=== PATIENT | female | born 1940 | race Two or more races ===

== ENCOUNTER 2016-02-18 04:10 | Inpatient (IN) | payer OTHER ==
[~2016-02-18] VITALS: Ht 144.8 cm; Wt 56.3 kg
[~2016-02-18 04:10] MED LIST: AMBIEN5 MG PO; AUGMENTIN875 MG PO; HYZAAR 100-11 TABLET PO; JANUVIA25 MG PO; LASIX20 MG PO; LIPITOR80 MG PO; LOW DOSE ASPIRI81 M1 PO; NORVASC10 MG PO; PROAIR HFA8.5 GM IH; SPIRIVA RESPIMAT4 GM IH; TOPROL XL100 MG PO; ULTRAM50 MG PO; VENTOLIN HFA18 GM IH; ZITHROMAX Z-PA250 MG PO; ZOLPIDEM TARTRAT5 MG PO
[2016-02-18 05:43] LABS: CARBON DIOXIDE (BICARBONATE) 21.8 MEQ/L (20-31)
[2016-02-18 05:53] LABS: CHLORIDE 112 mEq/L (99-109); POTASSIUM 4.4 mEq/L (3.7-5.4); SODIUM 141 mEq/L (136-147)
[2016-02-18 05:55] LABS: GLUCOSE 109 mg/dL (70-99)
[2016-02-18 05:56] LABS: ANION GAP 11 MEQ/L (2-14)
[2016-02-18 05:59] LABS: GFR ESTIMATE (CALCULATED) 23 mL/min/
[2016-02-18 06:00] LABS: UREA NITROGEN (BUN) 42 mg/dL (9-23)
[2016-02-18 06:03] LABS: TROP-I INTERPRETATION NEGATIVE; TROPONIN-I 0.09 ng/mL (0.0-0.30)
[2016-02-18 06:20] LABS: HEMATOCRIT 34.7 % (36.0-46.0); MCH 30.7 PG (29.0-34.0); MCHC 34.3 G/DL (30.0-36.0); MCV 89.4 FL (83-99); MEAN PLAT.VOLUME 9.3 uM^3 (9.5-12.4); PLATELET COUNT 312 K/uL (156-360); RBC DIS.WIDTH-CV 13.7 % (11.8-14.6); RBC DIS.WIDTH-SD 43.8 % (39-53); RED BLOOD COUNT 3.88 M/uL (3.80-5.20); WHITE BLOOD COUNT 11.8 K/uL (4.1-10.2)
[2016-02-18 08:56] LABS: INTER. NORMALIZED RATIO 1.1; PROTHROMBIN TIME 10.8 (9.2-11.2); PTT 28.3 (25-32)
[2016-02-18 15:25] LABS: ADD MIUA? YES; BILIRUBIN NEGATIVE; BLOOD TRACE; COLOR YELLOW ((YELLOW)); GLUCOSE (STRIP) NEGATIVE; KETONES NEGATIVE; LEUKOCYTES NEGATIVE; NITRITE NEGATIVE; PROTEIN (STRIP) 30; UROBILINOGEN 0.2 MG/DL (0.2-1.0)
[2016-02-18 15:40] LABS: BACTERIA NONE SEEN; CASTS NONE SEEN /LPF; CRYSTALS NONE SEEN; EPITHELIAL CELLS RARE; MUCUS NONE SEEN; PATHOLOGICAL CAST NONE SEEN; RED BLOOD CELLS 0-5 /HPF (0-5); SMALL ROUND CELL NONE SEEN; WHITE BLOOD CELLS 0-5 /HPF (0-5); YEAST-LIKE CELL NONE SEEN
[2016-02-18 15:55] VITALS: BP 165/61
[2016-02-18 16:05] VITALS: BP 124/78
[2016-02-18 16:25] LABS: TYPE OF FLUID PLEURAL
[2016-02-18 16:46] LABS: UR CREATININE CONCENTRATION 28.6 MG/DL
[2016-02-18 16:46] LABS: BODY FLUID RBC'S 10825 /MM^3 (0-100); BODY FLUID WBC'S 2975 /MM^3 (0-500); RED CELL AREA COUNTED 0.4; RED CELL DILUTION 1; WBC AREA COUNTED 0.4; WBC DILUTION 1; WHITE CELL RAW COUNT 119
[2016-02-18 16:54] LABS: BODY FLUID LDH 123 IU/L; BODY FLUID PROTEIN 4.8 G/DL
[2016-02-18 17:02] LABS: POLY RAW COUNT 3; POLYNUCLEAR WBC'S 3 % (0-25)
[2016-02-18 17:03] LABS: BODY FLUID EOSINOPHILS 2 % (0-25); MONO RAW COUNT 95; MONONUCLEAR WBC'S 95 %
[2016-02-18 17:39] VITALS: BP 135/65
[2016-02-18 20:00] VITALS: BP 129/62
[2016-02-19] VITALS (7 sets, daily range): BP systolic 117–145; BP diastolic 58–66
[2016-02-19 07:32] LABS: EOSINOPHIL (%) 4.3 % (0-5); EOSINOPHIL COUNT 0.3 K/uL (0-0.3); HEMATOCRIT 31.2 % (36.0-46.0); IMMATURE GRANULOCYTE (%) 0.3 % (0.0-0.7); LYMPHOCYTE COUNT 1.5 K/uL (1.0-2.8); MCH 30.3 PG (29.0-34.0); MCV 91.8 FL (83-99); MEAN PLAT.VOLUME 9.4 uM^3 (9.5-12.4); MONOCYTE (%) 10.7 % (3-12); MONOCYTE COUNT 0.8 K/uL (0-0.8); NEUTROPHIL (%) 64.1 % (45-76); NEUTROPHIL COUNT 4.9 K/uL (1.8-6.4); PLATELET COUNT 256 K/uL (156-360); RBC DIS.WIDTH-CV 14.1 % (11.8-14.6); RBC DIS.WIDTH-SD 47.4 % (39-53)
[2016-02-19 07:35] LABS: WHITE BLOOD COUNT 7.6 K/uL (4.1-10.2)
[2016-02-19 07:39] LABS: ANION GAP 13 MEQ/L (2-14); CHLORIDE 111 MEQ/L (99-109); GFR ESTIMATE (CALCULATED) 27 mL/min/; GLUCOSE 93 mg/dL (70-99); MAGNESIUM 1.7 mg/dl (1.3-2.7); POTASSIUM 3.9 MEQ/L (3.7-5.4); SAMPLE HEMOLYSIS CHECK 0; SAMPLE ICTERIC CHECK 0; SAMPLE LIPEMIA CHECK 0; SODIUM 145 MEQ/L (136-147); UREA NITROGEN (BUN) 33 mg/dL (9-23); URIC ACID 7.1 mg/dL (3.1-9.2)
[2016-02-20 04:15] VITALS: BP 122/67
[2016-02-20 06:41] LABS: EOSINOPHIL (%) 6.3 % (0-5); EOSINOPHIL COUNT 0.4 K/uL (0-0.3); HEMATOCRIT 31.4 % (36.0-46.0); IMMATURE GRANULOCYTE (%) 0.2 % (0.0-0.7); LYMPHOCYTE COUNT 1.4 K/uL (1.0-2.8); MCH 30.1 PG (29.0-34.0); MCHC 32.8 G/DL (30.0-36.0); MCV 91.8 FL (83-99); MEAN PLAT.VOLUME 9.4 uM^3 (9.5-12.4); MONOCYTE COUNT 0.7 K/uL (0-0.8); NEUTROPHIL (%) 60.9 % (45-76); PLATELET COUNT 245 K/uL (156-360); RBC DIS.WIDTH-CV 13.8 % (11.8-14.6); RBC DIS.WIDTH-SD 46.2 % (39-53); RED BLOOD COUNT 3.42 M/uL (3.80-5.20); WHITE BLOOD COUNT 6.6 K/uL (4.1-10.2)
[2016-02-20 07:18] LABS: ANION GAP 7 MEQ/L (2-14); CHLORIDE 113 MEQ/L (99-109); GFR ESTIMATE (CALCULATED) 31 mL/min/; GLUCOSE 88 mg/dL (70-99); POTASSIUM 3.9 MEQ/L (3.7-5.4); SAMPLE HEMOLYSIS CHECK 0; SAMPLE ICTERIC CHECK 0; SAMPLE LIPEMIA CHECK 0; SODIUM 143 MEQ/L (136-147); UREA NITROGEN (BUN) 31 mg/dL (9-23)
[2016-02-20 07:51] VITALS: BP 129/60
[2016-02-20 11:11] VITALS: BP 119/57
[2016-02-20 16:00] VITALS: BP 129/69
[2016-02-20 23:33] VITALS: BP 128/62
[2016-02-21 07:12] LABS: ANION GAP 8 MEQ/L (2-14); CHLORIDE 113 MEQ/L (99-109); GFR ESTIMATE (CALCULATED) 31 mL/min/; GLUCOSE 86 mg/dL (70-99); POTASSIUM 3.9 MEQ/L (3.7-5.4); SAMPLE HEMOLYSIS CHECK 0; SAMPLE ICTERIC CHECK 0; SAMPLE LIPEMIA CHECK 0; SODIUM 142 MEQ/L (136-147); UREA NITROGEN (BUN) 27 mg/dL (9-23)
[2016-02-21 07:51] LABS: EOSINOPHIL (%) 6.2 % (0-5); EOSINOPHIL COUNT 0.6 K/uL (0-0.3); HEMATOCRIT 30.2 % (36.0-46.0); IMMATURE GRANULOCYTE (%) 0.2 % (0.0-0.7); MCHC 32.8 G/DL (30.0-36.0); MCV 91.5 FL (83-99); MEAN PLAT.VOLUME 9.4 uM^3 (9.5-12.4); MONOCYTE (%) 7.5 % (3-12); MONOCYTE COUNT 0.7 K/uL (0-0.8); NEUTROPHIL (%) 63.4 % (45-76); NEUTROPHIL COUNT 5.7 K/uL (1.8-6.4); PLATELET COUNT 249 K/uL (156-360); RBC DIS.WIDTH-CV 14.1 % (11.8-14.6)
[2016-02-21 08:14] VITALS: BP 141/67
[2016-02-21 11:43] VITALS: BP 143/68
[2016-02-21 11:50] LABS: BODY FLUID PH 7.9 (())
[2016-02-22 13:13] LABS: Neutrophil Cytoplasmic Aby Negative (Negative)
[2016-02-23 17:30] LABS: GLOMERULAR BASEMENT MEMB ABY+ <1.0 AI (<1.0)
== END 2016-02-21 13:47 | disposition home or self-care (01) | DRG 683 ==
LOC: EME 04:10 → EDOF 07:40 → 2EAST 17:19
PROVIDERS: Emergency Medicine; Internal Medicine; Internal Medicine Nephrology; Nurse Practitioner Family
PROC: 0W9B3ZX Drainage of Left Pleural Cavity, Percutaneous Approach, Diagnostic (ICD-10-PCS; principal; 2016-02-18)
DX: N17.9 Acute kidney failure, unspecified (principal); E87.2 Acidosis; E86.0 Dehydration; E87.6 Hypokalemia; J95.89 Other postprocedural complications and disorders of respiratory system, not elsewhere classified; J90 Pleural effusion, not elsewhere classified; R04.2 Hemoptysis; R04.0 Epistaxis; J20.9 Acute bronchitis, unspecified; J98.11 Atelectasis; I12.9 Hypertensive chronic kidney disease with stage 1 through stage 4 chronic kidney disease, or unspecified chronic kidney disease; N18.3 Chronic kidney disease, stage 3 (moderate); E11.9 Type 2 diabetes mellitus without complications; I25.10 Atherosclerotic heart disease of native coronary artery without angina pectoris; E78.5 Hyperlipidemia, unspecified; Z95.1 Presence of aortocoronary bypass graft; Z87.891 Personal history of nicotine dependence
CPT/HCPCS: 71010; 71020; 76770; 80048; 81003; 82570; 82803; 82945; 82948; 83520 90; 83605; 83615 91; 83735; 83880; 83935; 83986 90; 84100; 84156; 84157; 84300; 84484; 84550; 85025; 85027; 85610; 85730; 86021 90; 86038; 87040; 87070; 87075; 87205; 89051; 93005; 94640; 94640 76; 99281; 99285; J1815; J7030